=== PATIENT | female | born 1980 | race Hispanic/Latino ===

== ENCOUNTER 2020-03-13 13:10 | Emergency (ER) | payer OTHER, SELFPAY ==
[2020-03-13] MEDS ORDERED: ONDANSETRON HCL 4 MG/2 ML VIAL ONE (14:30)
[2020-03-13] MEDS ORDERED: SODIUM CHLORIDE 0.9% 1000ML 1,000 ML IV ONE (14:30)
[2020-03-13] MEDS ORDERED: MORPHINE SULFATE 4 MG/1ML SYG ONE (14:30)
[2020-03-13] MEDS ORDERED: KETOROLAC TROMETHAMINE 30MG/ML ONE (16:04)
== END 2020-03-13 16:35 | disposition home or self-care (01) ==
LOC: EDH 13:10
DX: K80.80 Other cholelithiasis without obstruction (principal); R11.2 Nausea with vomiting, unspecified; Z79.899 Other long term (current) drug therapy
CPT/HCPCS: 36415; 76705; 80053; 83690; 85025; 96361; 96374; 96375; 99284; J1885; J2270; J2405; J7030

== ENCOUNTER 2020-03-15 01:38 | Emergency (ER) | payer OTHER, SELFPAY ==
[2020-03-15] MEDS ORDERED: ONDANSETRON HCL 4 MG/2 ML VIAL ONE (02:15)
[2020-03-15] MEDS ORDERED: FENTANYL CITRATE PF 50 MCG/1 ML 2ML VIAL ONE (02:16)
[2020-03-15 02:20] LABS: BASOPHILS % (AUTO) 0.3 % (0.0-5.0); EOSINOPHILS % (AUTO) 2.8 % (0.0-8.0); HEMATOCRIT 40.7 % (36-48); LYMPHOCYTES % (AUTO) 16.1 % (21.0-51.0); MEAN CORPUSCULAR HEMOGLOBIN 27.6 pg (27.0-33.0); MEAN CORPUSCULAR HGB CONC 32.4 g/dL (32.0-36.0); MEAN CORPUSCULAR VOLUME 85.1 fL (79-99); MONOCYTES % (AUTO) 6.2 % (3.0-13.0); NEUTROPHILS % (AUTO) 74.1 % (40.0-77.0); PLATELET COUNT (AUTO) 238 K/uL (130-400); RED BLOOD CELL COUNT(AUTO) 4.78 MIL/uL (4.00-5.50); RED CELL DISTRIBUTION WIDTH 13.9 % (11.0-15.5); WHITE BLOOD COUNT (AUTO) 8.7 K/uL (4.8-10.8)
[2020-03-15 02:28] LABS: APPEARANCE,URINE Clear (CLEAR); BILIRUBIN,URINE Negative (NEGATIVE); COLOR,URINE Yellow (YELLOW); GLUCOSE, URINE (UA) Negative (NEGATIVE); KETONES,URINE 15 mg/dL (NEGATIVE); LEUKOCYTE ESTERASE ,URINE Negative (NEGATIVE); NITRATE,URINE Negative (NEGATIVE); OCCULT BLOOD,URINE Negative (NEGATIVE); PROTEIN,URINE Negative (NEGATIVE)
[2020-03-15 02:30] LABS: CREATININE 0.7 mg/dL (0.5-1.5); POTASSIUM 3.9 mmol/L (3.5-5.1)
[2020-03-15 02:34] LABS: ALBUMIN 3.3 g/dL (3.5-5.0); TOTAL PROTEIN, SERUM 7.4 g/dL (6.0-8.3)
== END 2020-03-15 05:06 | disposition home or self-care (01) ==
LOC: EDH 01:38
DX: K80.20 Calculus of gallbladder without cholecystitis without obstruction (principal); K83.8 Other specified diseases of biliary tract; R93.2 Abnormal findings on diagnostic imaging of liver and biliary tract; R94.5 Abnormal results of liver function studies; Z90.49 Acquired absence of other specified parts of digestive tract
CPT/HCPCS: 36415; 76705; 80053; 81003; 82150; 83690; 85025; 96374; 96375; 99284; J2405; J3010

== ENCOUNTER 2020-06-24 15:17 | Inpatient (IN) | payer OTHER, SELFPAY ==
[~2020-06-24] VITALS: Ht 170.2 cm; Wt 72.7 kg
[2020-06-24 15:44] LABS: BASOPHILS % (AUTO) 0.2 % (0.0-5.0); EOSINOPHILS % (AUTO) 1.5 % (0.0-8.0); HEMATOCRIT 44.4 % (36-48); LYMPHOCYTES % (AUTO) 14.5 % (21.0-51.0); MEAN CORPUSCULAR HEMOGLOBIN 28.6 pg (27.0-33.0); MEAN CORPUSCULAR HGB CONC 32.9 g/dL (32.0-36.0); MEAN CORPUSCULAR VOLUME 87.1 fL (79-99); MONOCYTES % (AUTO) 5.5 % (3.0-13.0); NEUTROPHILS % (AUTO) 77.8 % (40.0-77.0); PLATELET COUNT (AUTO) 228 K/uL (130-400); RED CELL DISTRIBUTION WIDTH 12.9 % (11.0-15.5); WHITE BLOOD COUNT (AUTO) 10.9 K/uL (4.8-10.8)
[2020-06-24 15:53] LABS: CREATININE 0.7 mg/dL (0.5-1.5); POTASSIUM 3.7 mmol/L (3.5-5.1)
[2020-06-24 15:56] LABS: INR 0.92 (0.85-1.15); PARTIAL THROMBOPLASTIN TIME 27.8 SEC (26.3-35.5)
[2020-06-24 15:57] LABS: ALBUMIN 4.2 g/dL (3.5-5.0); BILIRUBIN,TOTAL 0.9 mg/dL (0.2-1.0); TOTAL PROTEIN, SERUM 8.4 g/dL (6.0-8.3)
[2020-06-24] MEDS ORDERED: ONDANSETRON HCL 4 MG/2 ML VIAL ONE (16:10)
[2020-06-24 17:58] LABS: APPEARANCE,URINE Cloudy (CLEAR); BILIRUBIN,URINE Negative (NEGATIVE); COLOR,URINE Yellow (YELLOW); GLUCOSE, URINE (UA) Negative (NEGATIVE); KETONES,URINE >=160 mg/dL (NEGATIVE); LEUKOCYTE ESTERASE ,URINE Small (NEGATIVE); NITRATE,URINE Negative (NEGATIVE); OCCULT BLOOD,URINE Negative (NEGATIVE); PH,URINE 8.5 (5.0-8.0); PROTEIN,URINE Negative (NEGATIVE)
[2020-06-24 18:00] LABS: HCG,QUAL RESULT NEGATIVE (NEGATIVE)
[2020-06-24 18:28] LABS: BACTERIA,URINE Few /HPF (None Seen); SQUAMOUS EPITHELIAL CELL,UR Few /HPF (0-2)
[2020-06-24 18:29] LABS: AMORPHOUS SEDIMENT,UR Moderate /LPF (None Seen); MUCUS,URINE Moderate LPF (None Seen)
[2020-06-24] MEDS ORDERED: KETOROLAC TROMETHAMINE 30MG/ML ONE (21:54)
[2020-06-24] MEDS ORDERED: ONDANSETRON HCL 4 MG/2 ML VIAL IV PRN (23:00)
[2020-06-24] MEDS ORDERED: KETOROLAC TROMETHAMINE 15MG/ML IV PRN (23:00)
[2020-06-25] MEDS ORDERED: CEFTRIAXONE SODIUM 1 GM ONE (05:08)
[2020-06-25 05:54] LABS: BASOPHILS % (AUTO) 0.3 % (0.0-5.0); EOSINOPHILS % (AUTO) 3.1 % (0.0-8.0); HEMATOCRIT 41.4 % (36-48); LYMPHOCYTES % (AUTO) 24.5 % (21.0-51.0); MEAN CORPUSCULAR HGB CONC 32.9 g/dL (32.0-36.0); MEAN CORPUSCULAR VOLUME 88.3 fL (79-99); MONOCYTES % (AUTO) 7.9 % (3.0-13.0); NEUTROPHILS % (AUTO) 63.9 % (40.0-77.0); PLATELET COUNT (AUTO) 185 K/uL (130-400); RED BLOOD CELL COUNT(AUTO) 4.69 MIL/uL (4.00-5.50); WHITE BLOOD COUNT (AUTO) 6.5 K/uL (4.8-10.8)
[2020-06-25] MEDS ORDERED: KETOROLAC TROMETHAMINE 15MG/ML ONE (06:18)
[2020-06-25 06:21] LABS: ALBUMIN 3.4 g/dL (3.5-5.0); BILIRUBIN,TOTAL 0.7 mg/dL (0.2-1.0); CREATININE 0.8 mg/dL (0.5-1.5); POTASSIUM 4.7 mmol/L (3.5-5.1); TOTAL PROTEIN, SERUM 6.9 g/dL (6.0-8.3)
[2020-06-25] MEDS: SODIUM CHLORIDE 0.9% 1000ML 1,000 ML IV SCH ×2 (11:45→15:04)
[2020-06-25] MEDS: CEFTRIAXONE SODIUM 1 GM IVP SCH ×2 (11:45→16:48)
[2020-06-25] MEDS: FAMOTIDINE/PF 20 MG/2 ML VIAL IV SCH ×2 (11:45→21:57)
[2020-06-25 12:24] VITALS: BP 108/67
[2020-06-25 19:36] VITALS: BP 128/69
[2020-06-25 20:00] VITALS: BP 92/52
[2020-06-25] MEDS ORDERED: SODIUM CHLORIDE 0.9% 1000ML 1,000 ML IV ONE (22:45)
[2020-06-26] VITALS: BP 92/51
[2020-06-26 04:00] VITALS: BP 90/48
[2020-06-26] MEDS: CEFTRIAXONE SODIUM 1 GM IVP SCH ×2 (04:25→17:14)
[2020-06-26] MEDS: METRONIDAZOLE 500MG/100ML BAG 100 ML IVPB SCH ×3 (05:17→20:58)
[2020-06-26 06:29] LABS: BASOPHILS % (AUTO) 0.3 % (0.0-5.0); EOSINOPHILS % (AUTO) 1.8 % (0.0-8.0); HEMATOCRIT 39.1 % (36-48); LYMPHOCYTES % (AUTO) 20.3 % (21.0-51.0); MEAN CORPUSCULAR HEMOGLOBIN 29.2 pg (27.0-33.0); MEAN CORPUSCULAR HGB CONC 32.2 g/dL (32.0-36.0); MEAN CORPUSCULAR VOLUME 90.5 fL (79-99); MONOCYTES % (AUTO) 6.2 % (3.0-13.0); NEUTROPHILS % (AUTO) 71.1 % (40.0-77.0); PLATELET COUNT (AUTO) 182 K/uL (130-400); RED BLOOD CELL COUNT(AUTO) 4.32 MIL/uL (4.00-5.50); RED CELL DISTRIBUTION WIDTH 12.9 % (11.0-15.5); WHITE BLOOD COUNT (AUTO) 6.5 K/uL (4.8-10.8)
[2020-06-26 06:41] LABS: ALBUMIN 3.1 g/dL (3.5-5.0); BILIRUBIN,DIRECT 0.2 mg/dL (0.0-0.3); BILIRUBIN,TOTAL 0.6 mg/dL (0.2-1.0); CREATININE 0.7 mg/dL (0.5-1.5); POTASSIUM 4.6 mmol/L (3.5-5.1); TOTAL PROTEIN, SERUM 6.5 g/dL (6.0-8.3)
[2020-06-26 08:00] VITALS: BP 101/63
[2020-06-26] MEDS: FAMOTIDINE/PF 20 MG/2 ML VIAL IV SCH ×2 (10:09→20:58)
--- NOTE | 2020-06-26 11:00 | NUR ---
DR. KATE PA IN REGARDS TO NEW CONSULT...WAITING FOR CALL BACK
--- NOTE | 2020-06-26 11:37 | NUR ---
CALL BACK DR. LOVE HAS CALLED BACK..INFORMED HIM ABOUT NEW CONSULT...HE IS NOW AWARE AND WAS PROVIDED WITH PT INFO AND ROOM NUMBER.
[2020-06-26 12:00] VITALS: BP 101/69
--- NOTE | 2020-06-26 15:49 | NUR ---
INITIAL SW spoke with patient. She lives with spouse. Patient has no home services. She is able to complete ADL's independently and drives. Patient has no PCP. She used to be a patient at [facility] but has not been there in a while. Pharmacy is [facility] in [place]. DCP is home. Patient has no insurance or benefits. She is not a [place] citizen or legal resident. Patient was provided with community resources for post hospitalization follow up. Patient was also provided with Good RX card for prescriptions and educated on [facility] $4 medication program and [facility] [employer] $5 medication program. Patient is being assisted by [employer] for financial matters. Addendum: 06/26/20 at 1555 by BETHANY CORTEZ Amended: Links added.
[2020-06-26 16:00] VITALS: BP 106/72
[2020-06-26 20:00] VITALS: BP 97/66
[2020-06-26] MEDS ORDERED: SODIUM CHLORIDE 0.9% 250 ML IV ONE (21:00)
[2020-06-27] VITALS (22 sets, daily range): BP systolic 78–122; BP diastolic 35–88
[2020-06-27] MEDS ORDERED: SODIUM CHLORIDE 0.9% 500ML 500 ML IV ONE (02:45)
[2020-06-27] MEDS: CEFTRIAXONE SODIUM 1 GM IVP SCH ×2 (03:52→17:56)
[2020-06-27 05:12] LABS: BASOPHILS % (AUTO) 0.2 % (0.0-5.0); EOSINOPHILS % (AUTO) 2.8 % (0.0-8.0); HEMATOCRIT 36.9 % (36-48); LYMPHOCYTES % (AUTO) 23.8 % (21.0-51.0); MEAN CORPUSCULAR HEMOGLOBIN 28.4 pg (27.0-33.0); MEAN CORPUSCULAR HGB CONC 32.2 g/dL (32.0-36.0); MEAN CORPUSCULAR VOLUME 88.1 fL (79-99); NEUTROPHILS % (AUTO) 62.8 % (40.0-77.0); PLATELET COUNT (AUTO) 183 K/uL (130-400); RED BLOOD CELL COUNT(AUTO) 4.19 MIL/uL (4.00-5.50); RED CELL DISTRIBUTION WIDTH 13.2 % (11.0-15.5); WHITE BLOOD COUNT (AUTO) 5.4 K/uL (4.8-10.8)
[2020-06-27 05:33] LABS: ALBUMIN 2.9 g/dL (3.5-5.0); BILIRUBIN,TOTAL 0.4 mg/dL (0.2-1.0); CREATININE 0.8 mg/dL (0.5-1.5); POTASSIUM 3.9 mmol/L (3.5-5.1); TOTAL PROTEIN, SERUM 6.1 g/dL (6.0-8.3)
[2020-06-27] MEDS: METRONIDAZOLE 500MG/100ML BAG 100 ML IVPB SCH ×3 (06:05→21:08)
[2020-06-27] MEDS: FAMOTIDINE/PF 20 MG/2 ML VIAL IV SCH ×2 (09:00→19:53)
[2020-06-27] MEDS ORDERED: IOHEXOL-350 50ML VIAL IV ONE (11:16)
[2020-06-27] MEDS ORDERED: FENTANYL CITRATE PF 50 MCG/1 ML 2ML VIAL ONE (11:49)
[2020-06-27] MEDS ORDERED: PROPOFOL 10 MG/ML 20ML VIAL IV ONE (11:50)
[2020-06-27] MEDS ORDERED: FENTANYL CITRATE PF 50 MCG/1 ML 2ML VIAL IJ ONE (11:50)
[2020-06-27] MEDS ORDERED: SUCCINYLCHOLINE CHLORIDE 20 MG/ML 10 ML VIAL ONE (11:50)
[2020-06-27] MEDS ORDERED: INDOMETHACIN 50 MG SUPP.RECT RC SCH (13:15)
[2020-06-27] MEDS: SODIUM CHLORIDE 0.9% 1000ML 1,000 ML IV SCH ×2 (14:15→19:53)
[2020-06-28] MEDS: SODIUM CHLORIDE 0.9% 1000ML 1,000 ML IV SCH ×3 (00:15→20:15)
[2020-06-28] MEDS: CEFTRIAXONE SODIUM 1 GM IVP SCH (04:30)
[2020-06-28 05:04] LABS: BASOPHILS % (AUTO) 0.4 % (0.0-5.0); EOSINOPHILS % (AUTO) 4.6 % (0.0-8.0); HEMATOCRIT 35.2 % (36-48); LYMPHOCYTES % (AUTO) 28.7 % (21.0-51.0); MEAN CORPUSCULAR HEMOGLOBIN 28.9 pg (27.0-33.0); MEAN CORPUSCULAR HGB CONC 33.2 g/dL (32.0-36.0); MEAN CORPUSCULAR VOLUME 86.9 fL (79-99); MONOCYTES % (AUTO) 10.1 % (3.0-13.0); PLATELET COUNT (AUTO) 180 K/uL (130-400); RED BLOOD CELL COUNT(AUTO) 4.05 MIL/uL (4.00-5.50); WHITE BLOOD COUNT (AUTO) 4.6 K/uL (4.8-10.8)
[2020-06-28 05:13] VITALS: BP 85/49
[2020-06-28] MEDS: METRONIDAZOLE 500MG/100ML BAG 100 ML IVPB SCH ×3 (05:21→21:00)
[2020-06-28 05:26] LABS: ALBUMIN 2.9 g/dL (3.5-5.0); BILIRUBIN,TOTAL 0.3 mg/dL (0.2-1.0); CREATININE 0.7 mg/dL (0.5-1.5); TOTAL PROTEIN, SERUM 6.2 g/dL (6.0-8.3)
[2020-06-28 08:13] VITALS: BP 98/63
[2020-06-28] MEDS: FAMOTIDINE/PF 20 MG/2 ML VIAL IV SCH ×2 (09:23→21:00)
[2020-06-28 12:00] VITALS: BP 106/72
[2020-06-28] MEDS ORDERED: EPHEDRINE SULFATE 50 MG/ML AMPULE ONE (16:10)
[2020-06-28 18:45] VITALS: BP 99/80
[2020-06-28 19:53] VITALS: BP 106/75
--- NOTE | 2020-06-28 21:00 | NUR ---
MEDS SHIFT ASSESSMENT DONE, PLEASE REFER TO CHART. DUE MEDS ADMINISTERED, TOLERATED WELL. INSTRUCTED PT TO BE NPO POST MN. PT VERBALIZES UNDERSTANDING. CALL LIGHT WITHIN REACH. WILL MONITOR PT. Addendum: 06/29/20 at 0233 by ANGEL NAVARRO RN RN Amended: Links added.
[2020-06-28 23:53] VITALS: BP 93/51
[2020-06-29] VITALS (23 sets, daily range): BP systolic 92–139; BP diastolic 55–88
[2020-06-29] MEDS: SODIUM CHLORIDE 0.9% 1000ML 1,000 ML IV SCH ×4 (00:14→21:43)
--- NOTE | 2020-06-29 02:00 | NUR ---
ROUNDS PT RESTING WELL, FAIRLY ASLEEP. NO DISTRESS NOTED. KEPT UNDISTURBED FOR NOW. WILL MONITOR PT. CALL LIGHT WITHIN REACH.
[2020-06-29] MEDS: METRONIDAZOLE 500MG/100ML BAG 100 ML IVPB SCH ×3 (04:49→21:43)
[2020-06-29] MEDS: CEFTRIAXONE SODIUM 1 GM IVP SCH ×2 (04:49→17:05)
--- NOTE | 2020-06-29 05:30 | NUR ---
SHOWER LOW VOLTAGE ELECTRICIAN IN TO DRAW BLOOD. SALINE LOCKED PT. PCP IN TO ASSIST PT WITH SHOWER. KEPT NPO FOR SX.
[2020-06-29 06:21] LABS: ALBUMIN 3.1 g/dL (3.5-5.0); BILIRUBIN,TOTAL 0.4 mg/dL (0.2-1.0); CREATININE 0.7 mg/dL (0.5-1.5); POTASSIUM 3.5 mmol/L (3.5-5.1); TOTAL PROTEIN, SERUM 6.5 g/dL (6.0-8.3)
[2020-06-29] MEDS: FAMOTIDINE/PF 20 MG/2 ML VIAL IV SCH ×2 (09:45→21:42)
--- NOTE | 2020-06-29 15:03 | NUR ---
to holding area via her bed Addendum: 06/29/20 at 1525 by PEGGY MINOR RN Amended: Links added.
[2020-06-29] MEDS ORDERED: SUCCINYLCHOLINE CHLORIDE 20 MG/ML 10 ML VIAL ONE (15:17)
[2020-06-29] MEDS ORDERED: LIDOCAINE PF 2% 5ML ABBOJECT ONE (15:17)
[2020-06-29] MEDS ORDERED: ROCURONIUM 10MG/1ML SYR 10 MG/ML ML ONE (15:18)
[2020-06-29] MEDS ORDERED: FENTANYL CITRATE PF 50 MCG/1 ML 2ML VIAL ONE (15:18)
[2020-06-29] MEDS ORDERED: PROPOFOL 10 MG/ML 20ML VIAL IV ONE (15:18)
[2020-06-29] MEDS ORDERED: BUPIVACAINE/PF 0.5% 10ML VIAL ONE (15:32)
[2020-06-29] MEDS ORDERED: PHENYLEPHRINE HCL 10 MG/ML 1ML VIAL IV ONE (15:40)
[2020-06-29] MEDS ORDERED: GLYCOPYRROLATE 1 MG/5 ML SYRINGE ONE (15:59)
[2020-06-29] MEDS ORDERED: NEOSTIGMINE 5MG/5ML SYR IV ONE (15:59)
[2020-06-29] MEDS ORDERED: KETOROLAC TROMETHAMINE 30MG/ML ONE (15:59)
[2020-06-29] MEDS ORDERED: ONDANSETRON HCL 4 MG/2 ML VIAL ONE (16:04)
[2020-06-29] MEDS ORDERED: MEPERIDINE-PF 25 MG/ML SYG ONE (16:30)
--- NOTE | 2020-06-29 17:18 | NUR ---
pt is ashlie to room via her bed, alert awake, with 4 bandaids x4 to abdomen Addendum: 06/29/20 at 1718 by PEGGY MINOR RN Amended: Links added.
[2020-06-30 00:37] VITALS: BP 119/79
[2020-06-30] MEDS: ACETAMINOPHEN-CODEINE 300/30MG TAB PO PRN ×2 (01:11→16:39)
[2020-06-30 04:42] LABS: HEMATOCRIT 38.1 % (36-48); MEAN CORPUSCULAR HEMOGLOBIN 28.9 pg (27.0-33.0); MEAN CORPUSCULAR HGB CONC 33.3 g/dL (32.0-36.0); MEAN CORPUSCULAR VOLUME 86.6 fL (79-99); RED BLOOD CELL COUNT(AUTO) 4.4 MIL/uL (4.00-5.50); RED CELL DISTRIBUTION WIDTH 12.8 % (11.0-15.5); WHITE BLOOD COUNT (AUTO) 6.3 K/uL (4.8-10.8)
[2020-06-30 04:57] VITALS: BP 102/66
[2020-06-30 04:58] LABS: ALBUMIN 3.1 g/dL (3.5-5.0); BILIRUBIN,DIRECT 0.1 mg/dL (0.0-0.3); BILIRUBIN,TOTAL 0.4 mg/dL (0.2-1.0); CREATININE 0.6 mg/dL (0.5-1.5); POTASSIUM 3.6 mmol/L (3.5-5.1); TOTAL PROTEIN, SERUM 6.5 g/dL (6.0-8.3)
[2020-06-30] MEDS: CEFTRIAXONE SODIUM 1 GM IVP SCH (05:21)
[2020-06-30] MEDS: METRONIDAZOLE 500MG/100ML BAG 100 ML IVPB SCH ×2 (05:21→14:00)
[2020-06-30 08:00] VITALS: BP 104/65
--- NOTE | 2020-06-30 09:50 | NUR ---
LISA COCHRAN NP ROUNDED WITH PT CLEARED PT FROM SX STANDPOINT. PER LISA PT IS CLEARED ONCE PT TOLERATES DIET AFTER LUNCH. PT IS INSTRUCTED TO FOLLOW UP WITH DR PHOENIX IN 2 WEEKS. PT STATES UNDERSTANDING.
[2020-06-30] MEDS: FAMOTIDINE/PF 20 MG/2 ML VIAL IV SCH (10:20)
[2020-06-30 12:00] VITALS: BP 107/72
[2020-06-30 16:00] VITALS: BP 115/72
--- NOTE | 2020-06-30 17:50 | NUR ---
DISCHARGE: PER MD ORDERS PT WAS DC'D HOME. IV REMOVED, TIP INTACT. DISCHARGE INSTRUCTIONS GIVEN TO PT. PT WAS INSTRUCTED TO FOLLOW LOW FAT, LOW SPICE DIET RECOMMENDED BY MD AND TO FOLLOW UP WITH DR PHOENIX IN [address] REYNOLDS,, PT WAS PROVIDED WITH AN APPT DATES AND NUMBERS TO OFFICE. NEW PRESCRIPTION WAS OF TYLENOL-CODEINE WAS EXPLAINED TO PT, SCRIPT PLACED IN DISCHARGE FOLDER. EXIT CARE EDUCATION WAS PROVIDED TO PT ON AFTER CARE OF LAP-[place], EM, INCISION CARE, AND ON PRESCRIBED MEDICATIONS. PT STATED UNDERSTANDING AND NO QUESTIONS. PT WAS INSTRUCTED TO CALL OFFICE SOONER FOR ANY CONCERNS OR TO GO TO NEAREST ER OR CALL 911 IN CASE OF AN EMERGENCY. PT STATED UNDERSTANDING.
== END 2020-06-30 18:00 | disposition home or self-care (01) | DRG 418 ==
LOC: EDH 15:17 → EDHIP 15:18 → 3DH 06-25 11:17
PROVIDERS: ADMIT Internal Medicine; ATTEND Internal Medicine
PROC: 0FC98ZZ Extirpation of Matter from Common Bile Duct, Via Natural or Artificial Opening Endoscopic (ICD-10-PCS; 2020-06-27)
PROC: 0F7D8DZ Dilation of Pancreatic Duct with Intraluminal Device, Via Natural or Artificial Opening Endoscopic (ICD-10-PCS; 2020-06-27)
PROC: 0FT44ZZ Resection of Gallbladder, Percutaneous Endoscopic Approach (ICD-10-PCS; principal; 2020-06-29 15:18)
DX: K80.63 Calculus of gallbladder and bile duct with acute cholecystitis with obstruction (principal); N39.0 Urinary tract infection, site not specified; Z20.828 Contact with and (suspected) exposure to other viral communicable diseases; K82.8 Other specified diseases of gallbladder
CPT/HCPCS: 36415; 43262; 43264; 43276; 74181; 74330; 76705; 80048; 80053; 80061; 80076; 81001; 81025; 82150; 82550; 83605; 83690; 84484; 84702; 85025; 85027; 85610; 85730; 87088; 87426; 93005; C1769; C1773; G0378; J0330; J0696; J1885; J2001; J2175; J2370; J2405; J2704; J2710; J3010; J3490; J7030; J7050; Q9967